=== PATIENT | female | born 1950 | race Caucasian/White ===

== ENCOUNTER → 2024-07-10 | Outpatient (CLI) | payer MEDICARE, BC, SELFPAY ==
--- NOTE | 2024-07-10 15:20 | US_ITS ---
EXAM: US RETROPERITONEAL LIMITED, RENAL CLINICAL INDICATION: MICROSCOPIC HEMATURIA TECHNIQUE: Limited grayscale and color Doppler sonographic evaluation of the retroperitoneum was performed. COMPARISON: No relevant prior studies available. FINDINGS: RIGHT KIDNEY: Normal. No hydronephrosis. No shadowing calculus. No perinephric collection is demonstrated. Right kidney measures 11.4 cm in length. LEFT KIDNEY: Normal. No hydronephrosis. No shadowing calculus. No perinephric collection is demonstrated. Left kidney measures 11.2 cm in length. BLADDER: Urinary bladder is normal. Prevoid bladder volume is 226 cc and postvoid volume is 7.4 cc. US/Kidney and Bladder IMPRESSION: Normal-sized kidneys without hydronephrosis. Electronically Signed: Diogo Masterson MD at 15:44 EDT ,
== END | disposition home or self-care (01) ==
PROVIDERS: PCP Family Medicine; Referring Provider Urology; Visit Provider Urology
DX: R31.29 Other microscopic hematuria (principal)
CPT/HCPCS: 76770